=== PATIENT | male | born 1960 | race Caucasian/White ===

== ENCOUNTER → 2016-05-11 | Outpatient (CLI) | payer SELFPAY ==
[~2016-05-11] MED LIST: DIAZ2TAB PO; GLCS500 PO; IBUP-1050 PO; PRVDB MT; SYN88 PO; [UNRECOGNIZED DRUG - CODE] MT
== END | disposition home or self-care (01) ==
LOC: C.LAB 07:37
PROVIDERS: ATTEND Nutritionist

== ENCOUNTER → 2017-02-06 | Day surgery (SDC) | payer BC ==
[~2017-02-06] VITALS: Ht 185.4 cm; Wt 70.5 kg
[~2017-02-06] MED LIST changes: +ATROPINE SULFATE 0.1 MG/ML 5ML SYR IV PRN; -DIAZ2TAB PO; +EpHEDrine SULFATE INJ 50 MG/ML AMP IV PRN; -GLCS500 PO; -IBUP-1050 PO; +LEVO175T PO; +LIDOCAINE HCL 2% 2 ML VIAL (20MG/ML) ONE; +MAGNESIUM PO; +MIRT15TA3 PO; +MULT-506 PO; +PROPOFOL IV EMULSION 10 MG/ML 20 ML VIAL IV ONE; -PRVDB MT; -SYN88 PO; +ZINC CITRATE PO; -[UNRECOGNIZED DRUG - CODE] MT
[2017-02-06 14:36] VITALS: Ht 185.4 cm; Wt 70.5 kg
--- NOTE | 2017-02-06 14:52 | Endo History and Physical ---
History & Physical Date of Service: Feb 06, 2017. Chief Complaint: TROUBLE SWALLOWING Referring Physician: CHIP RIVAS History of Present Illness For EGD Past Surgical History Hx Cardiac Surgery: No Hx Internal Defibrillator: No Hx Pacemaker: No Hx Abdominal Surgery: Yes (INGUINAL HERNIA) Hx of Implantable Prosthesis: No Hx Post-Op Nausea and Vomiting: No Hx Cancer Surgery: Yes (SEE ABOVE COMMENTS) Hx Thoracic Surgery: No Hx Orthopedic: No Hx Urinary Tract Surgery: No Family History Colon CA Social History Smoking Status: Never Smoker Hx Substance Use: No Allergies Coded Allergies: Fentanyl (Verified Allergy, Unknown, NAUSEA/VOMITTING, 02/06/17) Current Medications Reported Home Medications Medications Dose Route/Sig Max Daily Dose Days Date Category [Zinc Citrate] 50 Mg PO QAM 01/30/17 Reported [Magnesium] 300 Mg PO QAM 01/30/17 Reported Multivitamin (Multivitamins) Tab 1 Tab PO QAM 01/30/17 Reported Remeron (Mirtazapine) 15 Mg Tab 7.5 Mg PO HS PRN 01/30/17 Reported Synthroid (Levothyroxine Sodium) 175 Mcg Tab 175 Mcg PO QAM 01/30/17 Reported Vital Signs Weight (Kilograms): 70.45 Height (Feet): 6 Height (Inches): 1 Physical Exam General Appearance: WD/WN Respiratory/Chest: Respiratory effort: no dyspnea Cardiovascular: Heart Auscultation: RRR Abdomen: Inspection & Palpation: soft Assessment and Plan Dysphagia for EGD
--- NOTE | 2017-02-06 15:09 | Discharge Instructions ---
Endoscopy Patient Instructions Date / Procedure(s) Performed Feb 06, 2017. EGD Allergy Information Coded Allergies: Fentanyl (Verified Allergy, Unknown, NAUSEA/VOMITTING, 02/06/17) Discharge Date / Findings Feb 06, 2017. Normal EGD Medication Instructions Restart Stopped Medication(s): resume meds Reported Home Medications Medications Dose Route/Sig Max Daily Dose Days Date Category [Zinc Citrate] 50 Mg PO QAM 01/30/17 Reported [Magnesium] 300 Mg PO QAM 01/30/17 Reported Multivitamin (Multivitamins) Tab 1 Tab PO QAM 01/30/17 Reported Remeron (Mirtazapine) 15 Mg Tab 7.5 Mg PO HS PRN 01/30/17 Reported Synthroid (Levothyroxine Sodium) 175 Mcg Tab 175 Mcg PO QAM 01/30/17 Reported Provider Instructions Activity Restrictions - No exercising or heavy lifting for 24 hours. - Do not drink alcohol the day of the procedure. - Do not drive a car or operate machinery until the day after the procedure. - Do not make any important decisions or sign important papers in 24 hours after the procedure. Following Day: - Return to full activity which may include returning to work/school. Diet Start your diet with liquids and light foods (jello, soup, juice, toast). Then eat your usual diet if not nauseated. Treatment For Common After Affects For mild abdominal pain, bloating, or excessive gas: - Rest - Eat lightly - Lie on right side Follow-Up Information Follow-up with CHIP RIVAS as scheduled Anesthesia Information What You Should Know You have had a procedure that required some medicine to reduce anxiety and discomfort. This treatment is called moderate sedation. After receiving the treatment, you may be sleepy, but you will be able to breathe on your own. The effects of the treatment may last for several hours. Follow these instructions along with Activity/Diet recommendations noted above: * Do NOT do anything where dizziness or clumsiness would be dangerous. * Rest quietly at home today, then you can be up and about tomorrow. * Have a responsible person stay with you the rest of today. * You may have had an I.V. today. If so, you may take the dressing off later today. Recommendations Call your doctor if: * Trouble breathing * Continuous vomiting for more than 24 hours * Temperature above 101 degrees * Severe abdominal pain or bloating * Pain not relieved by pain medicine ordered * There is increased drainage or redness from any incision * A large amount of rectal bleeding greater than 2-3 tablespoons. (If you had a polyp/s removed or have hemorrhoids, a small amount of blood - from the rectum is to be expected.) * You have any unanswered questions or concerns. IN THE EVENT OF A SERIOUS EMERGENCY, GO TO THE NEAREST EMERGENCY ROOM Your discharge instructions were prepared by provider Gera Recinos. Patient Instructions Signature Page Bar Nuñez Patient (or Guardian) Signature/Date: I have read and understand the instructions given to me by my caregivers. Caregiver/RN/Doctor Signature/Date: The above-named patient and/or guardian has received patient instructions on this date. + Original Patient Signature Page (only) stays with chart. Please make copy for patient.
--- NOTE | 2017-02-06 15:13 | GI REPORT ---
Procedure Date: 02/06/2017 2:46 PM Procedure: Upper GI endoscopy Indications: Dysphagia, Personal history of malignant neoplasm of the GI tract Medicines: Propofol total dose 180 mg IV, Lidocaine 40 mg IV Complications: No immediate complications. Estimated Blood Loss: Estimated blood loss: none. Procedure: Pre-Anesthesia Assessment: - Prior to the procedure, a History and Physical was performed, and patient medications, allergies and sensitivities were reviewed. The patient's tolerance of previous anesthesia was reviewed. - The risks and benefits of the procedure and the sedation options and risks were discussed with the patient. All questions were answered and informed consent was obtained. After obtaining informed consent, the endoscope was passed under direct vision. Throughout the procedure, the patient's blood pressure, pulse, and oxygen saturations were monitored continuously. The Scope was introduced through the mouth, and advanced to the second part of duodenum. The upper GI endoscopy was accomplished without difficulty. The patient tolerated the procedure well. Findings: The Z-line was regular and was found 44 cm from the incisors. The examined esophagus was normal. The entire examined stomach was normal. The examined duodenum was normal. Impression: - Z-line regular, 44 cm from the incisors. - Normal esophagus. - Normal stomach. - Normal examined duodenum. - No specimens collected. Recommendation: - Discharge patient to home (ambulatory). - Refer to speech therapist at appointment to be scheduled. - Continue present medications. - Return to primary care physician PRN. Gera Recinos M.D. Gera Recinos MD 02/06/2017 3:12:57 PM This report has been signed electronically. Note Initiated On: 02/06/2017 2:46 PM I attest to the content of the Intraoperative Record and orders documented therein, exceptions below
--- NOTE | 2017-02-06 15:22 | Anesthesiology Progress Note ---
Anesthesia Post Op Note Date & Time Feb 06, 2017 at 15:22 Vital Signs Pain Intensity: 0 Vital Signs Past 12 Hours Date Time Temp Pulse Resp B/P (MAP) Pulse Ox O2 Delivery O2 Flow Rate FiO2 02/06/17 15:15 36.2 62 16 98/59 (72) 99 Room Air 02/06/17 14:43 36.4 70 16 156/91 (112) 99 Room Air Notes Mental Status: alert / awake / arousable, participated in evaluation Pt Amnestic to Procedure: Yes Nausea / Vomiting: adequately controlled Pain: adequately controlled Airway Patency, RR, SpO2: stable & adequate BP & HR: stable & adequate Hydration State: stable & adequate Anesthetic Complications: no major complications apparent
[2017-02-06 15:45] VITALS: BP 137/92; PULSE 63; O2SAT 99
== END | disposition home or self-care (01) ==
LOC: C.GI 14:06
PROVIDERS: ATTEND Internal Medicine Gastroenterology
DX: R13.10 Dysphagia, unspecified (principal); Z85.01 Personal history of malignant neoplasm of esophagus; Z80.0 Family history of malignant neoplasm of digestive organs; E03.9 Hypothyroidism, unspecified; Z79.899 Other long term (current) drug therapy